=== PATIENT | male | born 1950 | race Caucasian/White ===

== ENCOUNTER 2017-09-23 07:14 | Observation (INO) ==
[2017-09-23] MEDS ORDERED: Aspirin 81 MG TAB.CHEW PO ONE (07:37)
[2017-09-23] MEDS ORDERED: Nitroglycerin 0.4 MG TAB.SUBL SL ONE (07:37)
--- NOTE | 2017-09-23 07:57 | Emergency Department Note ---
Disposition Clinical Impression: Chest pain, rule out acute myocardial infarction Disposition: Admitted As Inpatient Condition: Fair Time of Disposition: 08:05 Chest Pain HPI - General Chief Complaint: ED Chest Pain Stated Complaint: cp/sob Time Seen by Provider: 09/23/17 07:23 Source: patient Mode of arrival: ambulatory Limitations: no limitations Vital Signs Reviewed: Yes Nursing Notes Reviewed: Yes - History of Present Illness HPI Narrative: 66-year-old male presents emergency Department with concerns of acute onset chest pain. Patient states pain has been intermittent over the past few days. Described as pressure and aching in the left upper chest that radiates to the left shoulder. He had associated nausea and diaphoresis this morning which was new compared to the previous days. Patient has a 55 year history of tobacco abuse, is treated for high blood pressure and has a family history of cardiac disease. Patient states last stress test was about 4-5 years ago. Patient denied near syncopal event or palpitations. Patient does report the pain becomes worse with laying flat however the pain does present with ambulation and exertion throughout the day as well. Severity scale (1-10): 8 - Related Data Home Medications Medication Instructions Recorded Confirmed Guaifenesin [Mucinex] 600 mg PO BID PRN 09/23/17 09/23/17 Loratadine [Claritin] 10 mg PO DAILY 09/23/17 09/23/17 Olmesartan Medoxomil [Benicar] 20 mg PO DAILY 09/23/17 09/23/17 Allergies Allergy/AdvReac Type Severity Reaction Status Date / Time codeine AdvReac Nausea Verified 09/23/17 09:00 All systems ED: reviewed and negative except as stated. Review of Systems: As Per HPI Constitutional: Denies: fever, chills, weakness Cardiovascular: Reports: chest pain, dyspnea on exertion. Denies: palpitations , orthopnea, edema, syncope Respiratory: Reports: wheezes. Denies: cough, dyspnea Gastrointestinal: Reports: nausea. Denies: abdominal pain, vomiting, diarrhea Chest Pain PMH - Past Medical History Medical history: Reports: hypertension - Social History Smoking Status: Current every day smoker Physical Exam General: Alert and in no acute distress Skin: Warm, dry, intact Head: Normocephalic and atraumatic Neck: Supple, trachea midline and no tenderness Cardiovascular: RRR, no murmur, normal perfusion Respiratory: Mild expiratory wheeze without evidence of cough, or respiratory distress Musculoskeletal: Normal strength, no tenderness, swelling or deformity GI: Soft, nontender, nondistended. Bowel sounds present Neuro: A&O to person, place, time and situation. No focal deficits noted on exam Psychiatric: cooperative and appropriate mood and affect. Course Vital Signs Temperature 97.8 F 09/23/17 07:17 Pulse Rate 56 09/23/17 07:17 Respiratory Rate 20 09/23/17 07:17 Blood Pressure 141/81 09/23/17 07:17 O2 Sat by Pulse Oximetry 96 09/23/17 07:17 Temperature 97.8 F 09/23/17 08:13 Pulse Rate 66 09/23/17 08:26 Respiratory Rate 16 09/23/17 08:26 Blood Pressure 142/88 09/23/17 08:26 O2 Sat by Pulse Oximetry 96 09/23/17 08:26 Oxygen Delivery Oxygen Delivery Room Air Chest Pain - MDM Narrative Medical decision making narrative: Initial EKG did not show evidence of STEMI. Patient had a normal initial troponin. Chest x-ray did not show evidence of pneumothorax or infiltrate. Patient will be admitted to the hospital for further care and evaluation. - Medical Records Medical records reviewed: Yes I reviewed the patient's medical records. - Lab Data Lab results reviewed: Yes I reviewed the patient's lab results. Result diagrams: 09/23/17 07:46 09/23/17 07:46 Lab Results 09/23/17 09/23/17 09/23/17 Range/Units 07:46 07:46 07:46 WBC 6.8 (4.3-11.1) K/mcL RBC 4.78 (4.19-5.50) M/mcL Hgb 14.4 (12.9-16.9) g/dL Hct 42.6 (37.5-50.1) % MCV 89.1 (83.0-100.0) fL MCH 30.1 (28.0-33.3) pg MCHC 33.8 (31.6-35.5) g/dL RDW 13.2 (11.5-14.5) % Plt Count 214 (140-400) K/mcL MPV 9.0 L (9.4-12.4) fL Immature Gran % 0.4 (0-4) % Seg Neutrophils % 52.8 % Lymphocytes % 30.0 % Monocytes % 12.1 % Eosinophils % 3.4 % Basophils % 1.3 % Neutrophils # 3.6 (1.6-8.9) K/mcL Lymphocytes # 2.0 (0.6-4.6) K/mcL Monocytes # 0.8 (0.0-1.3) K/mcL Eosinophils # 0.2 (0.0-0.6) K/mcL Basophils # 0.1 (0.0-0.2) K/mcL PT 10.8 (9.4-12.1) Seconds INR 1.0 APTT 34.0 (26.0-36.0) Seconds Sodium 139 (136-145) mEq/L Potassium 4.3 (3.5-5.1) mEq/L Chloride 106 (98-107) mEq/L Carbon Dioxide 29 (23-29) mEq/L BUN 20 (8-23) mg/dL Creatinine 0.99 (0.70-1.30) mg/dL Est GFR ( Amer) > 60 (> 60) Est GFR (Non-Af Amer) > 60 (> 60) BUN/Creatinine Ratio 20 (6-26) Glucose 98 (70-105) mg/dL Calculated Osmolality 291 (280-300) Calcium 9.3 (8.6-10.3) mg/dL Troponin I < 0.03 (< 0.04) ng/mL - Radiology Data Radiology results reviewed: Yes I reviewed the patient's radiology results. - EKG Data EKG attestation: Yes I reviewed and interpreted this EKG. EKG results narrative: ECG - interpreted by ED physician. Rate 71, normal sinus rhythm, no STEMI, CA, QT intervals, and QRS within normal limits Heart Score - Score History: Moderately Suspicious EKG: Normal Age: 45-65 Risk Factors: Equal/Greater than 3 risk factor or history of atherosclerotic disease Troponin: Less than normal limit HEART Score Total: 4
[2017-09-23 07:59] LABS: Basophils # 0.1 K/mcL (0.0-0.2); Basophils % 1.3 %; Eosinophils # 0.2 K/mcL (0.0-0.6); Eosinophils % 3.4 %; Hematocrit 42.6 % (37.5-50.1); Hemoglobin 14.4 g/dL (12.9-16.9); Immature Granulocytes % 0.4 % (0-4); Mean Corpuscular HGB Conc 33.8 g/dL (31.6-35.5); Mean Corpuscular Hemoglobin 30.1 pg (28.0-33.3); Mean Corpuscular Volume 89.1 fL (83.0-100.0); Monocytes # 0.8 K/mcL (0.0-1.3); Monocytes % 12.1 %; Neutrophils # 3.6 K/mcL (1.6-8.9); Platelet Count 214 K/mcL (140-400); Red Blood Count 4.78 M/mcL (4.19-5.50); Red Cell Distribution Width 13.2 % (11.5-14.5); Segmented Neutrophils % 52.8 %
[2017-09-23 08:04] LABS: Prothrombin Time 10.8 Seconds (9.4-12.1)
[2017-09-23 08:18] LABS: BUN/Creatinine Ratio 20 (6-26); Blood Urea Nitrogen 20 mg/dL (8-23); Calcium 9.3 mg/dL (8.6-10.3); Carbon Dioxide 29 mEq/L (23-29); Chloride 106 mEq/L (98-107); Glucose 98 mg/dL (70-105); Osmolality,Calculated 291 (280-300); Potassium 4.3 mEq/L (3.5-5.1); Sodium 139 mEq/L (136-145); eGFR For Non-African Americans > 60 (> 60)
[2017-09-23 09:26] LABS: Troponin I < 0.03 ng/mL (< 0.04)
[2017-09-23] MEDS ORDERED: Naloxone 0.4 MG/ML INJ IVP PRN (09:58)
[2017-09-23] MEDS ORDERED: Acetaminophen 325 MG TABLET PO PRN (09:58)
--- NOTE | 2017-09-23 11:01 | Internal Med History&Physical ---
Date of Encounter: 09/23/17 Time of Encounter: 09:00 Internal Medicine - H&P: HPI Chief complaint: Chest pain Admitted From: Home Plans for Post Hospital Care: Home History of present illness: Mr. Shrestha is a 66 year old male presented to ER for chest pain. Past medical history is significant for hypertension and tobacco abuse. Patient has left-sided chest pain and left-sided back pain for about 1 week. The pain is constant, sharp, with clear chest wall and back tenderness at specific points. Patient has no radiation, the intensity of pain ranged from 3-4 /10 to 9/10. Patient denies shortness of breath, nausea, or vomiting. Patient has no diaphoresis until this morning 5:30 AM, when he felt hot and sweating a lot. Patient was given aspirin and nitroglycerin in the emergency room, which, as per patient, not relieve the pain significantly. Patient denies recent immobilization, surgery, travel, leg pain or swelling. Patient was admitted to rule out ACS. Past Med Surg Social Fam HX - Past Medical History Medical history: hypertension Psychiatric history: no psych history - Social History Smoking Status: Current every day smoker Packs per day: 1 Smokeless Tobacco Status: No Alcohol use: heavy Drug use: none - Family History Father Living Status: Age at : 54 Cause of : [place] Hx Family Cardiac Disorders: Yes ([place]) Internal Medicine - H&P: Meds Guaifenesin [Mucinex] 600 mg PO BID PRN 09/23/17 [History] Loratadine [Claritin] 10 mg PO DAILY 09/23/17 [History] Olmesartan Medoxomil [Benicar] 20 mg PO DAILY 09/23/17 [History] 3 Allergy/AdvReac Type Severity Reaction Status Date / Time codeine AdvReac Nausea Verified 09/23/17 09:00 All Systems PM: A 10-system review of systems was performed and is negative for pertinent findings except as documented above in the HPI. - Constitutional Vitals: Temp Pulse Resp BP Pulse Ox 97.9 F 63 15 139/75 96 09/23/17 10:19 09/23/17 10:19 09/23/17 10:19 09/23/17 10:19 09/23/17 10:19 General appearance: Present: A&O X 3, no acute distress, answers questions appropriately Exam: Patient is laying on bed comfortably, in no acute distress. - Head Head exam: Present: atraumatic, normocephalic - Eye Eye exam: Present: PERRL, conjuntiva pink, sclera anicteric Pupils: Present: PERRL - Neck Neck exam general surgery: Present: supple, trachea midline. Absent: lymphadenopathy - Respiratory Respiratory exam: Present: CTAB. Absent: accessory muscle use, rales, rhonchi, wheezes - Cardiovascular Cardiovascular exam: Present: RRR, +S1, +S2. Absent: diastolic murmur, gallop, rubs, systolic murmur - GI/Abdominal GI/Abdominal exam: Present: normal bowel sounds, soft, no peritoneal signs. Absent: distended, tenderness - Extremities Exam Extremities exam: Present: warm, radial pulses palpable and symmetrical. Absent : calf tenderness, cyanotic, pedal edema - Neurological Exam Neurological exam: Present: CN II-XII intact, oriented X3, no focal deficits. Absent: pronater drift, facial droop, speech deficit - Skin Skin exam: Present: dry, intact Internal Med - H&P Results - Labs CBC & Chem 7: 09/23/17 07:46 09/23/17 07:46 - EKG Data -: EKG Interpreted by Myself EKG shows normal: sinus rhythm Rate: normal - Assessment and plan (1) Hypertension Current Visit: Yes Status: Acute Assessment and plan: Continue home medications Qualifiers: Hypertension type: essential hypertension Qualified Code(s): I10 - Essential (primary) hypertension (2) Chest pain, rule out acute myocardial infarction Current Visit: Yes Status: Acute Assessment and plan: Patient has chest pain. History of hypertension and tobacco abuse. Need to rule out ACS. - Place patient on continuous cardiac monitoring - Track 3 sets of troponin - CXR in ER is negative - Echocardiogram - Patient has a clear chest wall and left side back tenderness. If all tests are negative, most likely musculoskeletal pain. We will consider discharge patient home and continue follow-up with PCP. (3) Tobacco abuse Current Visit: Yes Status: Acute Assessment and plan: Smoking cessation education. Place patient on nicotine patch 14 mg daily - Time Spent With Patient Total time spent is greater than 50% in coordination of care (as documented) at patient's floor/unit and/or counseling patient: 25 - 35 minutes
[2017-09-23] MEDS ORDERED: Nicotine 14 MG PATCH.TD24 TD SCH (12:45)
--- NOTE | 2017-09-23 17:54 | Electrocardiograph Report ---
[address] [address] Test Date: 2017-09-23 Pat Name: Raymon Shrestha Department: Room: 3B Gender: M Textile Artist: : [id number] Requested By: Raymon Polo Order Number: [id number] Reading MD: Eldon Chambers Measurements Intervals [place] Rate: 70 P: 68 [place]: 204 QRS: 86 QRSD: 83 T: 73 QT: 362 QTc: 391 Interpretive Statements Sinus rhythm Electronically Signed On 09-23-2017 17:52:43 EDT by Eldon Chambers
[2017-09-23] MEDS ORDERED: Melatonin 3 MG TABLET PO PRN (21:05)
[2017-09-24 06:55] VITALS: BP 144/76
--- NOTE | 2017-09-24 07:13 | Discharge Summary ---
Date of Encounter: 09/24/17 Time of Encounter: 07:00 - Discharge Diagnosis (1) Hypertension Priority: Secondary Status: Acute Qualifiers: Hypertension type: essential hypertension Qualified Code(s): I10 - Essential (primary) hypertension (2) Chest pain, rule out acute myocardial infarction Priority: Primary Status: Acute (3) Tobacco abuse Priority: Secondary Status: Acute Hospital course: Mr. Shrestha is a 66 year old male admitted as chest pain to r/o ACS. Pt was placed on cardiac monitoring. 3 sets of troponin negative. Echo unremarkable. EKG has been reviewed and signed by cardio, unremarkable. Pt still has mild chest wall pain with clear tenderness. I saw pt today, in NAD, vitals stable. Advise pt quit smoking and control BP. ACS is very less likely, most likely muscular pain. Pt can be dc home and cont f /u with PCP as outpatient. Pt has over the counter Advil, he takes as needed for pain, no prescription needed. Time spent discussing smoking cessation with patient: more than 10 minutes - Time Spent with Patient Total time spent providing and/or coordinating discharge services: 25 min Less than 30 minutes - Discharge Medications Home Medications: Guaifenesin [Mucinex] 600 mg PO BID PRN 09/23/17 [History] Loratadine [Claritin] 10 mg PO DAILY 09/23/17 [History] Olmesartan Medoxomil [Benicar] 20 mg PO DAILY 09/23/17 [History] Allergies/Adverse Reactions: 3 Allergy/AdvReac Type Severity Reaction Status Date / Time codeine AdvReac Nausea Verified 09/23/17 09:00 Date of admission: 09/23/17 09:41 Primary care physician: PCP NONE Discharging clinician: Michelle Jarvis Anticipated date of discharge: 09/24/17 - Constitutional Vitals: Temp Pulse Resp BP Pulse Ox 98.0 F 72 15 144/76 96 09/24/17 06:54 09/24/17 06:54 09/24/17 06:54 09/24/17 06:54 09/24/17 06:54 General appearance: Present: A&O X 3, no acute distress, answers questions appropriately Exam: Patient is sitting on bed comfortably, in no acute distress. - Head Head exam: Present: atraumatic, normocephalic - Eye Eye exam: Present: PERRL, conjuntiva pink, sclera anicteric Pupils: Present: PERRL - Neck Neck exam general surgery: Present: supple, trachea midline. Absent: lymphadenopathy - Respiratory Respiratory exam: Present: chest wall tenderness, CTAB. Absent: accessory muscle use, rales, rhonchi, wheezes - Cardiovascular Cardiovascular exam: Present: RRR, +S1, +S2. Absent: diastolic murmur, gallop, rubs, systolic murmur - GI/Abdominal GI/Abdominal exam: Present: normal bowel sounds, soft, no peritoneal signs. Absent: distended, tenderness - Extremities Exam Extremities exam: Present: warm, radial pulses palpable and symmetrical. Absent : calf tenderness, cyanotic, pedal edema - Neurological Exam Neurological exam: Present: CN II-XII intact, oriented X3, no focal deficits. Absent: pronater drift, facial droop, speech deficit - Skin Skin exam: Present: dry, intact - Patient Status Disposition: Home, Self-Care Condition: Good Functional capacity at discharge: independent ambulation Overall status at discharge: patient is back to baseline - Discharge Instructions Follow Up With: NONE,PCP [Primary Care Provider] - - Diet and Activity Activity: increase activity as tolerated Diet: advance to your usual diet
== END 2017-09-24 07:52 | disposition home or self-care (01) ==
LOC: 3BNU 07:14 → EMEROOARM 07:14 → 3BNU 10:14
PROVIDERS: ADMIT Internal Medicine; ATTEND Internal Medicine